=== PATIENT | male | born 1945 ===

== ENCOUNTER 2018-06-10 09:25 | Outpatient (CLI) | payer OTHER ==
[~2018-06-10] VITALS: Ht 162.6 cm; Wt 91.6 kg
== END 2018-06-10 09:45 | disposition home or self-care (01) ==
LOC: OFIC 805 09:25
DX: R09.81 Nasal congestion (principal); J30.89 Other allergic rhinitis; J34.2 Deviated nasal septum; H91.8X3 Other specified hearing loss, bilateral

== ENCOUNTER 2018-07-08 09:59 | Outpatient (CLI) | payer OTHER ==
[~2018-07-08] VITALS: Ht 162.6 cm; Wt 90.7 kg
== END 2018-07-08 10:15 | disposition home or self-care (01) ==
LOC: OFIC 805 09:59
DX: J30.89 Other allergic rhinitis (principal); H91.8X3 Other specified hearing loss, bilateral; R09.81 Nasal congestion; J34.2 Deviated nasal septum

== ENCOUNTER 2018-07-18 15:23 | Emergency (ER) | payer OTHER ==
[~2018-07-18] VITALS: Ht 162.6 cm; Wt 92.1 kg
[2018-07-18] MEDS ORDERED: TOPROL XL200 MG (16:32)
[2018-07-18] MEDS ORDERED: AMIODARONE HCL200 MG (16:33)
[2018-07-18] MEDS ORDERED: SYNTHROID112 MCG (16:33)
[2018-07-18] MEDS ORDERED: LOSARTAN-HCTZ1 EAC1 (16:33)
[2018-07-18] MEDS ORDERED: XARELTO15 MG (16:34)
[2018-07-18] MEDS ORDERED: LEVEMIR100 UNIT/1 (16:34)
[2018-07-18] MEDS ORDERED: NORVASC10 MG (16:34)
[2018-07-18] MEDS ORDERED: ZOCOR40 MG (16:34)
[2018-07-18] MEDS ORDERED: VICTOZA 2-0.6 MG/0.1 (16:35)
[2018-07-18] MEDS ORDERED: MULTI VITAMIN1 EACH (16:35)
[2018-07-18] MEDS ORDERED: VITAMIN D400 UNI2 (16:36)
[2018-07-18] MEDS ORDERED: SKELAXIN800 MG PO (19:38)
[2018-07-18] MEDS ORDERED: ULTRACET PO (19:38)
== END 2018-07-18 19:45 | disposition home or self-care (01) ==
LOC: ER 15:23
DX: S83.8X2A Sprain of other specified parts of left knee, initial encounter (principal); S83.8X1A Sprain of other specified parts of right knee, initial encounter; M79.662 Pain in left lower leg; M79.661 Pain in right lower leg; X50.0XXA Overexertion from strenuous movement or load, initial encounter; Y93.39 Activity, other involving climbing, rappelling and jumping off; Y92.89 Other specified places as the place of occurrence of the external cause; Y99.8 Other external cause status

== ENCOUNTER 2018-08-19 16:07 | Outpatient (CLI) | payer OTHER ==
[~2018-08-19] VITALS: Ht 162.6 cm; Wt 90.7 kg
[~2018-08-19 16:07] MED LIST: AMIODARONE HCL200 MG; LEVEMIR100 UNIT/1; LOSARTAN-HCTZ1 EAC1; MULTI VITAMIN1 EACH; NORVASC10 MG; SKELAXIN800 MG PO; SYNTHROID112 MCG; TOPROL XL200 MG; ULTRACET PO; VICTOZA 2-0.6 MG/0.1; VITAMIN D400 UNI2; XARELTO15 MG; ZOCOR40 MG
== END 2018-08-19 16:20 | disposition home or self-care (01) ==
LOC: OFIC 805 16:07
DX: J34.2 Deviated nasal septum (principal); R09.81 Nasal congestion; J30.89 Other allergic rhinitis; J32.8 Other chronic sinusitis; H90.3 Sensorineural hearing loss, bilateral